=== PATIENT | female | born 1990 | race African-American/Black ===

== ENCOUNTER 2017-05-09 12:10 | Outpatient (CLI) | payer MEDICAID ==
[2017-05-09 12:27] VITALS: BP 122/74
== END 2017-05-09 13:13 | disposition home or self-care (01) ==
LOC: TRG 12:10
PROVIDERS: ATTEND Obstetrics & Gynecology
DX: O48.0 Post-term pregnancy (principal); Z3A.40 40 weeks gestation of pregnancy
CPT/HCPCS: 59025

== ENCOUNTER 2017-05-12 10:09 | Inpatient (IN) | payer MEDICAID ==
[2017-05-12] MEDS ORDERED: LACTATED RINGERS 1,000 ML ONE (10:43)
--- NOTE | 2017-05-12 11:25 | History and Physical Report ---
History of Present Illness Date of examination: 05/12/17 Date of admission: 05/12/17 10:33 Chief complaint: Leaking of clear fluid from vagina since 8:00 AM today. History of present illness: 27 year old presents to L&D at 40 weeks, 1 day gestation complaining of leaking of water from vagina since 8:00 AM today. Patient denies bleeding. Patient reports good movement. Past History Past Medical History: no pertinent history Past Surgical History: no surgical history NUT SIFTER History: other (negative NUT SIFTER history) Family/Genetic History: none Social history: , lives with family, full code. denies: smoking, alcohol abuse - Obstetrical History Expected Date of Delivery: 05/11/17 Actual Gestation: 40 Week(s) 1 Day(s) : 2 Para: 1 Hx # Term Pregnancies: 2 Number of Pregnancies: 0 Spontaneous Abortions: 0 Induced : 0 Number of Living Children: 1 Medications and Allergies Allergies Allergy/AdvReac Type Severity Reaction Status Date / Time No Known Allergies Allergy Verified 05/09/17 12:17 Home Medications Medication Instructions Recorded Confirmed Last Taken Type Pnv95/Ferrous Fumarate/FA 1 each PO QDAY 05/19/13 05/19/13 05/17/13 History [ Vitamins] 1 tablet Review of Systems Constitutional: no fever, no chills Ears, nose, mouth and throat: no headache Cardiovascular: no lightheadedness, no leg edema Respiratory: no cough Gastrointestinal: no abdominal pain, no nausea, no vomiting Genitourinary: leakage of fluid, contractions, no vaginal bleeding, no vaginal discharge, no genital sores Neurological: no headaches - Vital Signs Vital signs: Vital Signs Pulse BP 100 H 121/77 05/12/17 10:39 05/12/17 10:39 Temp Pulse Resp BP Pulse Ox 100 H 121/77 05/12/17 10:39 05/12/17 10:39 - Physical Exam Breasts: Positive: deferred Cardiovascular: Regular rate, No murmurs Lungs: Positive: Clear to auscultation Abdomen: Positive: normal appearance, soft. Negative: distention, tenderness, guarding Genitourinary (Female): Positive: normal external genitalia. Negative: perineal /vulvar lesions Vagina: Positive: other (Leaking clear fluid from vagina) Uterus: Positive: enlarged. Negative: tender Extremities: Positive: normal. Negative: edema - Obstetrical FHR: category 1 Uterine Contraction Monitor Mode: External Cervical Dilatation: 3 Cervical Effacement Percentage: 70 station: -2 Uterine Contraction Frequency (min): Irregular Uterine Contraction Pattern: Irregular Uterine Contraction Intensity: Moderate Results All other labs normal. Assessment and Plan A: at 40 weeks, 1 day gestation. Spontaneous rupture of membranes. Early labor. GBS negative. P: Admit patient. Continuous EFM. Anticipate .
[2017-05-12] MEDS ORDERED: XYLOCAINE 2% INFILTRATI ONE (12:36)
[2017-05-12] MEDS ORDERED: ePHEDrine SULFATE IV PRN (12:36)
[2017-05-12] MEDS ORDERED: BRETHINE IVP PRN (12:36)
[2017-05-12] MEDS ORDERED: STADOL IV PRN (12:36)
[2017-05-12] MEDS ORDERED: BRETHINE SUB-Q PRN (12:36)
[2017-05-12] MEDS ORDERED: MINERAL OIL PO PRN (12:36)
[2017-05-12] MEDS ORDERED: LACTATED RINGERS 1,000 ML IV SCH (13:00)
[2017-05-12] MEDS ORDERED: PITOCin/NS 20 UNIT/1000ML DRIP 20 UNITS/1,000 ML BAG IV SCH (13:00)
[2017-05-12] MEDS ORDERED: PITOCin/NS 30 UNIT/500ML 30 UNITS/500 ML BAG IV SCH (13:00)
[2017-05-12] MEDS: PITOCin/NS 30 UNIT/500ML 30 UNITS/500 ML BAG IV SCH ×5 (13:52→16:39)
[2017-05-12 15:47] LABS: Basophils % (Auto) 0.4 % (0.0-1.8); Eosinophils % (Auto) 1.2 % (0.0-4.3); Hematocrit 40.7 % (30.3-42.9); Hemoglobin 13.8 gm/dl (10.1-14.3); Mean Corpuscular HGB Conc 34 % (30-34); Mean Corpuscular Hemoglobin 33 pg (28-32); Mean Corpuscular Volume 97 fl (79-97); Platelet Count 176 K/mm3 (140-440); Red Blood Count 4.21 M/mm3 (3.65-5.03); Red Cell Distribution Width 13.3 % (13.2-15.2); White Blood Count 8.4 K/mm3 (4.5-11.0)
[2017-05-12] MEDS: LACTATED RINGERS 1,000 ML IV SCH (19:53)
[2017-05-12] MEDS ORDERED: POLYCILLIN/NS 2 GM/100 ML 2 GM/100 ML BAG IV ONE (20:33)
--- NOTE | 2017-05-13 00:29 | Event Note ---
Date: 05/13/17 Patient is having regular contractions every 2-3 minutes. Pitocin is at 16 milliunits per minute. Uterus palpates soft between contractions. IUPC placed without difficulty to help determine adequacy of contractions. Cervix is 3-4/80/ -2/cephalic. Category 1 FHR tracing. Patient is afebrile (T 98.6) and vital signs are stable. Patient's position has been changed frequently to help facilitate labor.
[2017-05-13] MEDS ORDERED: POLYCILLIN/NS 1 GM/50 ML 1 GM/50 ML BAG IV SCH (00:39)
--- NOTE | 2017-05-13 02:19 | Event Note ---
Date: 05/13/17 SVE 4/80/-2/cephalic. Small amount of bloody show noted. FHR baseline 135 with moderate variability and accelerations. Contractions adequate. VSS; afebrile. Patient has had ROM for [address] now[address] with Dr[address] Santiago regarding patient and informed him of ROM for 18 hours and slow cervical dilation and interventions taken. Dr. Santiago states it is OK to allow patient to continue to labor.
[2017-05-13] MEDS: LACTATED RINGERS 1,000 ML IV SCH (02:36)
[2017-05-13] MEDS ORDERED: NACL 0.9% 1000 ML 1,000 ML ONE (03:31)
--- NOTE | 2017-05-13 03:39 | Event Note ---
Date: 05/13/17 Patient reports she feels pelvic pressure and urge to push with contractions. SVE 5/80/-2. Contractions every 2-3 minutes; uterus palpates soft between contractions; normal uterine resting tone. Several early FHR decelerations noted and several variable FHR decelerations noted with rapid return to baseline ; variability is moderate and baseline rate is normal. Amnioinfusion started d/ t variable decelerations. Patient positioned in left lateral position. Patient has received IV fluid bolus and O2 per face mask.
--- NOTE | 2017-05-13 05:01 | Event Note ---
Date: 05/13/17 SVE /-2. Called Dr. Santiago regarding no cervical change despite adequate MVUs ; variable FHR decelerations in spite of amnioinfusion, and prolonged rupture of membranes. Dr. Santiago states he plans to perform section. Discussed this plan with patient and family and patient and family state they are in agreement with plan for section.
[2017-05-13] MEDS ORDERED: BICITRA ONE (05:16)
[2017-05-13] MEDS ORDERED: ANCEF/STERILE WATER 2 GM/20 ML 2 GM/20 ML SYRINGE IV ONE ×2 (05:17→08:00)
[2017-05-13] MEDS ORDERED: PEPCID IV ONE (05:17)
[2017-05-13] MEDS ORDERED: REGLAN ONE (05:17)
[2017-05-13] MEDS ORDERED: NARCAN 0.4 MG/1 ML IV PRN ×2 (05:37→08:00)
[2017-05-13] MEDS ORDERED: ZOFRAN IV PRN (05:37)
[2017-05-13] MEDS ORDERED: BENADRYL IV PRN (05:37)
--- NOTE | 2017-05-13 05:37 | Anesthesia Consultation ---
Anesthesia Consult and Med Hx Date of service: 05/13/17 - Airway Anesthetic Teeth Evaluation: Good ROM Head & Neck: Adequate Mental/Hyoid Distance: Adequate Mallampati Class: Class II Intubation Access Assessment: Probably Good - Pulmonary Exam CTA: Yes - Cardiac Exam Cardiac Exam: RRR - Pre-Operative Health Status ASA Pre-Surgery Classification: ASA2 Proposed Anesthetic Plan: Epidural, Spinal - Pulmonary Hx Asthma: No COPD: No Hx Pneumonia: No - Cardiovascular System Hx Hypertension: No - Central Nervous System Hx Seizures: No Hx Psychiatric Problems: No - Endocrine Hx Renal Disease: No Hx End Stage Renal Disease: No Hx Hypothyroidism: No Hx Hyperthyroidism: No - Hematic Hx Anemia: No Hx Sickle Cell Disease: No - Other Systems Hx Alcohol Use: No Hx Obesity: Yes - Additional Comments Anesthesia Medical History Comments: +IUP
--- NOTE | 2017-05-13 05:37 | Anesthesia Day of Surgery ---
Anesthesia Day of Surgery - Day of Surgery Patient Examined: Yes Patient H&P Reviewed: Yes Patient is NPO: Yes
[2017-05-13] MEDS ORDERED: MORPHINE IV PRN ×2 (05:38)
[2017-05-13] MEDS ORDERED: NACL 0.9% IR ONE (06:00)
[2017-05-13] MEDS ORDERED: SODIUM CHLORIDE FLUSH SYRINGE 10 ML IV NR (06:00)
[2017-05-13] MEDS ORDERED: ANCEF/STERILE WATER 2 GM/20 ML IV ONE (06:08)
[2017-05-13] MEDS ORDERED: WATER FOR IRRIG STERILE IR ONE (06:12)
[2017-05-13] MEDS ORDERED: ZOFRAN ONE (06:14)
[2017-05-13] MEDS ORDERED: METHERGINE IM ONE (06:33)
[2017-05-13] MEDS ORDERED: VERSED ONE (06:40)
[2017-05-13] MEDS ORDERED: NEO SYNEPHRINE/NS Syringe(OR USE) IV ONE (07:00)
--- NOTE | 2017-05-13 07:03 | Operative Report ---
Operative Report Operative Report: Date of procedure: 05/13/2017 Pre-operative diagnosis: 1. Intrauterine at 40-3/7 weeks in labor 2. Failure to progress Post-operative diagnosis: Same Procedure name(s): Primary low transverse section Surgeon: Jonas Santiago MD Filter Cloth Maker: None Anesthesia: Epidural anesthesia by Dr. Mckenzie EBL: 800 mL's Findings: A 3398 g female Apgars 8 at 1 minute 9 at 5 minutes. Clear amniotic fluid. Nuchal cord 1. Normal uterus. Normal tubes and ovaries bilaterally Procedure: After the patient was prepped and draped in usual sterile fashion, and after satisfactory level of epidural anesthesia was obtained, the skin knife was used to make a transverse skin incision. The incision was excised down to layer of the fascia, which was nicked in the midline and extended laterally using the Bovie cautery. The rectus muscles were dissected off the rectus fascia both superiorly and inferiorly. The rectus bellies in the midline, and the peritoneum was entered under direct visualization. The peritoneal incision was extended superiorly and inferiorly. A bladder flap was created and the bladder blade was then placed. The uterus was scored in a curvilinear linear fashion, entered in the midline revealing clear amniotic fluid. The infant's head was delivered onto the surgical field, nuchal cord 1 easily reduced and the oropharynx and nasopharynx were bulb suctioned. The rest of the infant's body was delivered, cord was doubly clamped and cut and the infant was handed to the waiting respiratory team. The placenta was manually removed from the uterus, and the uterus removed from its normal anatomical position. After gentle uterine lavage, the incision was inspected and found to be without extensions. It was then closed in 2 layers using 0 Vicryl suture in a running interlocking fashion, the second layer imbricating the first. After good hemostasis was achieved, copious amounts or irrigation was performed, and the gutters were suctioned free of blood and blood clots. Tisseel sealant was sprayed across the uterine incision. The uterus was then returned to its normal anatomical position, and after excellent hemostasis assured, the peritoneum was re-approximated using 3-0 Vicryl suture in a running interlocking fashion, and then the rectus muscles were re-approximated using 3-0 Vicryl suture in a [id number] configuration. The fascia was then re-approximated using 0 Vicryl suture in running interlocking fashion. The subcutaneous layer was made hemostatic using Bovie cautery, the Tisseel sealant was sprayed across the fascial incision and the skin edges re- approximated using 4-0 Vicryl suture in a sub-cuticular fashion. Patient tolerated the procedure well was transported to recovery in stable condition.
--- NOTE | 2017-05-13 07:21 | Post Anesthesia Evaluation ---
- Post Anesthesia Evaluation Patient Participated: Yes Airway Patent: Yes Stable Respiratory Function: Yes Nausea/Vomiting: No Temp > 96.8F: Yes Pain Manageable: Yes Adequeate Hydration: Yes Anesthesia Complications: No Block Receding Appropriately: Yes Patient on Ventilator: No
[2017-05-13] MEDS ORDERED: D5LR 1,000 ML IV SCH (08:00)
[2017-05-13] MEDS ORDERED: MYLICON PO PRN (08:00)
[2017-05-13] MEDS ORDERED: SODIUM CHLORIDE FLUSH SYRINGE 10 ML IV PRN (08:00)
[2017-05-13] MEDS ORDERED: REGLAN IV NR (08:00)
[2017-05-13] MEDS ORDERED: LACTATED RINGERS 1,000 ML IV SCH (08:00)
[2017-05-13] MEDS ORDERED: MOTRIN PO PRN (08:00)
[2017-05-13] MEDS ORDERED: PEPCID IV NR (08:00)
[2017-05-13] MEDS ORDERED: TUCKS PAD TP PRN (08:00)
[2017-05-13] MEDS ORDERED: NORCO 5/325 PO PRN (08:00)
[2017-05-13] MEDS ORDERED: SENOKOT PO PRN (08:00)
[2017-05-13] MEDS ORDERED: BICITRA PO NR (08:00)
[2017-05-13] MEDS ORDERED: LANSINOH TP PRN (08:00)
[2017-05-13] MEDS ORDERED: PITOCin/NS 20 UNIT/1000ML DRIP 20 UNITS/1,000 ML BAG IV SCH (08:00)
[2017-05-13] MEDS: TORADOL IV PRN (13:49)
[2017-05-13] MEDS ORDERED: ANCEF/NS 1 GM/50 ML 1 GM/50 ML BAG IV SCH (15:30)
[2017-05-13 21:34] LABS: Hematocrit 34.5 % (30.3-42.9); Hemoglobin 11.6 gm/dl (10.1-14.3)
[2017-05-13] MEDS ORDERED: MILK OF MAGNESIA PO PRN (22:00)
[2017-05-14] MEDS: TORADOL IV PRN (04:28)
[2017-05-14] MEDS ORDERED: BOOSTRIX IM ONE (06:00)
--- NOTE | 2017-05-14 09:25 | Progress Note ---
Assessment and Plan - Patient Problems (1) Status post primary low transverse section Onset Date: 05/14/17 Current Visit: Yes Status: Resolved Plan to address problem: A: S/P C Section - POD #1 Doing well P: Continue RPOC Anticipate discharge in 24-48hrs Subjective - Subjective Date of service: 05/14/17 Principal diagnosis: s/p C Section - POD #1 Interval history: Pt is feeling well without complaints. Tolerating a liquid diet without nausea or vomiting. Bleeding improved. Patient reports: appetite normal, voiding normally, pain well controlled, flatus , ambulating normally : doing well, nursing well Objective - Vital Signs Latest vital signs: Vital Signs Temp Pulse Resp BP 05/13/17 12:08 98.0 F 76 20 106/60 - Exam Breasts: Present: deferred Cardiovascular: Present: Regular rate Lungs: Present: Clear to auscultation Abdomen: Present: normal appearance, soft Uterus: Present: normal, firm, fundal height below umbilicus Extremities: Present: normal Incision: Present: normal, dry, intact, dressed Comments: Laboratory Tests 05/12/17 05/12/17 05/12/17 10:45 10:45 10:45 WBC 8.4 RBC 4.21 Hgb 13.8 Hct 40.7 MCV 97 MCH 33 H MCHC 34 RDW 13.3 Plt Count 176 Lymph % (Auto) 17.9 [place] % (Auto) 10.9 H Eos % (Auto) 1.2 Baso % (Auto) 0.4 Lymph # 1.5 [place] # 0.9 H Eos # 0.1 Baso # 0.0 Seg Neutrophils % 69.6 Seg Neutrophils # 5.8 RPR Nonreactive Blood Type A POSITIVE Antibody Screen Negative 05/13/17 20:33 WBC RBC Hgb 11.6 Hct 34.5 D MCV MCH MCHC RDW Plt Count Lymph % (Auto) [place] % (Auto) Eos % (Auto) Baso % (Auto) Lymph # [place] # Eos # Baso # Seg Neutrophils % Seg Neutrophils # RPR Blood Type Antibody Screen
--- NOTE | 2017-05-14 09:29 | Progress Note ---
Subjective Date of service: 05/14/17 Principal diagnosis: s/p C Section - POD #1 Interval history: 1st POD after Patient is in the bed, comfortable. Pain is well controlled with pain meds. No pruritus. Ambulated well. No residual neurological deficit. No anesthesia complications Objective - Labs CBC & Chem 7: 05/13/17 20:33
[2017-05-14] MEDS: FEOSOL PO SCH (10:30)
[2017-05-14] MEDS: PRENATAL VITAMIN PO SCH (10:30)
[2017-05-14] MEDS ORDERED: M-M-R II VACCINE SUB-Q ONE (11:00)
[2017-05-14] MEDS: PERCOCET 5/325 PO PRN ×2 (16:50→23:54)
[2017-05-15] MEDS: FEOSOL PO SCH (09:50)
[2017-05-15] MEDS: PRENATAL VITAMIN PO SCH (09:50)
--- NOTE | 2017-05-15 10:07 | Progress Note ---
Assessment and Plan A: POD #2 Stable Difficulty P: Follow Routine PostOp Orders Consult D/C home in the AM Plans IUD for PP Contraception RTO in One Week Subjective - Subjective Date of service: 05/15/17 Principal diagnosis: s/p C Section - POD #1 Patient reports: appetite normal, voiding normally, pain well controlled, flatus , ambulating normally [place]: doing well Objective - Vital Signs Latest vital signs: Vital Signs Temp Pulse Resp BP BP Pulse Ox 05/15/17 00:00 98.6 F 67 18 122/74 05/14/17 23:54 20 05/14/17 16:36 98.7 F 81 18 117/72 97 Intake and Output 05/14/17 05/15/17 05/15/17 22:59 06:59 14:59 Intake Total 480 300 Balance 480 300 Intake: Oral 480 Intake, Free Water 300 Other: Total, Intake Amount 240 # Voids Void 1 - Exam Breasts: Present: normal Cardiovascular: Present: Regular rate Lungs: Present: Clear to auscultation, Normal air movement Abdomen: Present: normal appearance, soft, normal bowel sounds Uterus: Present: normal, firm, fundal height below umbilicus Extremities: Present: normal Incision: Present: normal, dry, intact
--- NOTE | 2017-05-15 10:08 | Discharge Summary ---
Providers - Providers Date of Admission: 05/12/17 10:33 Date of discharge: 05/16/17 Attending physician: JANNA MORALES MD Primary care physician: JANNA MORALES MD Hospitalization Reason for admission: active labor Delivery: Episiotomy: none Laceration: none Incision: normal, dry, intact Other procedures: none complications: none Discharge diagnosis: IUP at term delivered [place] baby: female Condition at discharge: Good Disposition: DC-[id number] TO HOME OR SELFCARE Plan - Discharge Medications Prescriptions: Ferrous Sulfate [Feosol 325 MG tab] 325 mg PO BID #60 tablet HYDROcodone/APAP 5-325 [[place] 5/325] 1 each PO Q6HR PRN #30 tablet PRN Reason: Pain Ibuprofen [Motrin] 800 mg PO Q8HR PRN #30 tablet PRN Reason: Moder Pain Unrelieved By [place] Vit W-Ca,Fe,FA(<1 mg) [ Vitamins] 1 each PO DAILY #30 tablet - Provider Discharge Summary Activity: routine, no sex for 6 weeks, no heavy lifting 4 weeks Diet: routine Instructions: routine Additional instructions: [] Smoking cessation referral if applicable(refer to patient education folder for contact #) [] Refer to [facility]'s [facility] Booklet Call your doctor immediately for: * Fever > 100.5 * Heavy vaginal bleeding ( >1 pad per hour) * Severe persistent headache * Shortness of breath * Reddened, hot, painful area to leg or breast * Drainage or odor from incision. * Keep incision clean and dry at all times and follow doctor's instructions regarding bathing/showering - Follow up plan Follow up: SIMON PACE CNM [Advanced Practice Nurse] - 7 Days
[2017-05-15] MEDS: PERCOCET 5/325 PO PRN (19:28)
[2017-05-16] MEDS: PERCOCET 5/325 PO PRN ×2 (05:32→17:10)
[2017-05-16] MEDS: PRENATAL VITAMIN PO SCH ×2 (11:02→11:03)
[2017-05-16] MEDS: FEOSOL PO SCH (11:03)
[2017-05-16 17:36] VITALS: BP 128/80
== END 2017-05-16 18:45 | disposition home or self-care (01) | DRG 766 ==
LOC: TRG 10:09 → LD 10:33 → OB 05-13 08:25
PROVIDERS: ADMIT Obstetrics & Gynecology; ATTEND Obstetrics & Gynecology
PROC: 10D00Z1 Extraction of Products of Conception, Low, Open Approach (ICD-10-PCS; principal; 2017-05-13)
PROC: 3E0234Z Introduction of Serum, Toxoid and Vaccine into Muscle, Percutaneous Approach (ICD-10-PCS; 2017-05-13)
DX: O69.81X0 Labor and delivery complicated by cord around neck, without compression, not applicable or unspecified (principal); O76 Abnormality in fetal heart rate and rhythm complicating labor and delivery; Z3A.40 40 weeks gestation of pregnancy; Z37.0 Single live birth; Z23 Encounter for immunization
CPT/HCPCS: 36415; 85014; 85018; 85025; 86592; 86850; 86900; 86901; 99211; C9250; G0463; J0290; J0690; J1885; J2210; J2250; J2270; J2370; J2405; J2590; J2765; J7030; J7120; J7121